=== PATIENT | male | born 1990 | race Caucasian/White ===

== ENCOUNTER 2016-12-15 12:04 | Emergency (ER) | payer OTHER ==
[2016-12-15 12:09] VITALS: BP 93/60
--- NOTE | 2016-12-15 12:29 | PHYS DOC ---
Past History Past Medical History: Alcoholism, Anxiety Past Surgical History: Other Alcohol Use: Heavy Drug Use: None Adult General Chief Complaint Chief Complaint: epigastric pain HPI HPI Patient is a 26-year-old male who presents ambulatory to the ED with a complaint of epigastric pain. He went to his primary care doctor's office, they said that he had a small amount of blood in his urine, and a sent him to the emergency department. Patient states that for about 4 days, when he wakes up in the morning, he feels bloated and has pain and pressure in his epigastrium. It's more pressure than pain. Prior to today, He will vomit and the pain improves. This morning, he woke up with the pain, it was worse than it had been. He vomited. The pain did not improve after vomiting. He had had a red bull energy drink which came back up. The patient denies having had pain like this before in his life. He denies any blood in his vomit or stools, denies black stools. Patient states the frequency of his bowel movements "are not what they should be". He has not had as much stool as he would expect for what he is been eating. Patient for about 2 months has been taking an "herbal supplement",Kratom. Patient has been using it daily. He smokes cigarettes daily. He drinks on occasion. He did have a few drinks last night. Patient denies chronic medical problems. He has not had abdominal surgery. He does not take any prescribed medications. 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 Review of Systems Review of Systems Constitutional: Denies fever or chills [] Respiratory: Denies cough or shortness of breath [] Cardiovascular: Denies chest pain GI: As in history of present illness : Reported microscopic hematuria from a urine test at the doctor's office this morning Musculoskeletal: Denies back pain or joint pain [] Allergies Allergies Allergies Coded Allergies Type Severity Reaction Last Updated Verified No Known Drug Allergies 03/02/16 No Physical Exam Physical Exam Constitutional: Well developed, well nourished, appears uncomfortable, appears anxious, somewhat agitated, holding his epigastrium, vital signs stable, alert and mentating normally HENT: Normocephalic, atraumatic, bilateral external ears normal, nose normal. [ ] Eyes: conjunctiva normal, no discharge. [] Neck: Normal range of motion, no stridor. [] Cardiovascular:Heart rate regular rhythm, no murmur [] Lungs & Thorax: Bilateral breath sounds clear to auscultation [] Abdomen: Bowel sounds normal, no masses, no pulsatile masses. Increased tympany throughout. Patient insists that I should not palpate his epigastrium, elsewhere there is mild to no abdominal tenderness, no rebound or guarding. Skin: Warm, dry, no erythema, no rash. [] Extremities: no cyanosis, no clubbing, no edema. [] Neurologic: Alert and oriented X 3, normal motor function, no focal deficits noted. [] Current Patient Data Vital Signs Vital Signs Date Time Temp Pulse Resp B/P (MAP) Pulse Ox O2 Delivery O2 Flow Rate FiO2 12/15/16 12:09 83 16 98 Room Air EKG EKG [] Radiology/Procedures Radiology/Procedures [] Course & Med Decision Making Course & Med Decision Making Pertinent Labs and Imaging studies reviewed. (See chart for details) 26-year-old male presents ambulatory to the ED with epigastric pain for the past 4 mornings, worse this morning, with vomiting without hematemesis. The patient is anxious and agitated. He does smell of alcohol but does not appear acutely intoxicated. Patient gestures to his epigastric area and states "I just want you to look in there, I just want you to see what's in there that's hurting ". After my history and exam, patient stated "what could it be? I want you to tell me everything that could possibly be." I discussed with the patient that based on my history and exam, I would consider gastritis or ulcer, pancreatitis, or "gas pain" at this time. I advised that we could check some labs, urine, and check an x-ray. Patient stated that he would prefer to just start with an x-ray , "the more you talk about it, the more I think it might be a gas pain". We agreed that we would start by obtaining x-rays, if that is consistent with my differential of possible constipation/"gas pain", we could treat him with a laxative. After x-rays, I told him, I might recommend further testing depending on the results. He was agreeable to that plan. I left the room to order the x-ray, and in probably less than 5 minutes, the patient was up walking down the self toward the exit, ED nursing staff ask him where he was going, he stated "this is an emergency and I need some attention faster than this". The patient had been in the ED a total of 25 minutes at that time. The patient ambulated out the exit and left without further evaluation, left without his discharge instructions, although I had verbally told him that if he was found to have constipation/gas on x-ray I would likely recommend a laxative in that case. [] Dragon Disclaimer Dragon Disclaimer This chart was dictated in whole or in part using Voice Recognition software in a busy, high-work load, and often noisy Emergency Department environment. It may contain unintended and wholly unrecognized errors or omissions. Departure Departure: Impression: Primary Impression: Epigastric abdominal pain Additional Impression: Vomiting Disposition: 01 HOME, SELF-CARE Condition: STABLE Referrals: PCP,UNKNOWN (PCP) Additional Instructions: Patient left prior to completing evaluation and left without discharge instructions. Problem Qualifiers DRISS GARRETT MD Dec 15, 2016 12:29
== END 2016-12-15 12:32 | disposition home or self-care (01) ==
LOC: ER 12:04
DX: R10.13 Epigastric pain (principal); R11.10 Vomiting, unspecified; R31.9 Hematuria, unspecified; F10.20 Alcohol dependence, uncomplicated; F41.9 Anxiety disorder, unspecified; F17.210 Nicotine dependence, cigarettes, uncomplicated
CPT/HCPCS: 99281

== ENCOUNTER → 2016-12-20 | Outpatient (CLI) | payer OTHER ==
[2016-12-15 12:09] VITALS: BP 93/60
[~2016-12-20] MED LIST: IOHEXOL 240 MG/ML 50ML VIAL. ONE; IOHEXOL 300 MG/ML 75 ML VIAL. IV ONE
--- NOTE | 2016-12-20 13:11 | RAD ---
Examination: CT of the abdomen pelvis with IV contrast History: History of epigastric pain, dark urine, elevated liver enzymes Comparison: None available Technique: Axial CT images of the abdomen pelvis were performed with IV contrast. Coronal and sagittal reformats were performed. Oral contrast was used. PQRS Compliance Statement: One or more of the following individualized dose reduction techniques were utilized for this examination: 1. Automated exposure control 2. Adjustment of the mA and/or kV according to patient size 3. Use of iterative reconstruction technique Findings: The visualized bibasal lungs grossly appears unremarkable. No evidence of free air identified in the abdomen. There is mild diffuse decreased attenuation noted throughout the liver likely hepatic steatosis. There is a focal low density measuring 4.0 x 1.6 cm identified in the left lobe of the liver with focal fat or hypodense lesion. The visualized spleen, adrenals grossly appears unremarkable. The gallbladder is mildly distended. The stomach is mildly distended. The visualized pancreas grossly appears unremarkable. The small bowel is nondilated. Feces and gas noted in the colon. The appendix is normal. Kidneys enhance symmetrically. The urinary bladder is mildly distended. No evidence of lytic bony destructive lesion. Impression: 1. No acute intra-abdominal findings. 2. 4 cm hypodensity identified in the left lobe of the liver probably focal fat or a hypodense lesion. Consider follow-up ultrasound for further evaluation. 3. Mild hepatic steatosis.
== END | disposition home or self-care (01) ==
LOC: CT 11:15
PROVIDERS: ATTEND Nurse Practitioner Family
DX: K76.0 Fatty (change of) liver, not elsewhere classified (principal); K82.8 Other specified diseases of gallbladder; N32.89 Other specified disorders of bladder; K31.89 Other diseases of stomach and duodenum; R19.7 Diarrhea, unspecified; R94.5 Abnormal results of liver function studies
CPT/HCPCS: 74177; Q9966; Q9967

== ENCOUNTER 2017-01-28 12:08 | Emergency (ER) | payer OTHER ==
[~2017-01-28] VITALS: Ht 175.3 cm; Wt 68.0 kg
[2017-01-28 12:14] VITALS: BP 145/50
--- NOTE | 2017-01-28 13:03 | PHYS DOC ---
Past History Past Medical History: Alcoholism, Anxiety Past Surgical History: Other Alcohol Use: Heavy Drug Use: None Adult General Chief Complaint Chief Complaint: BURN/SMOKE INHALATION HPI HPI 26-year-old patient states he had burn to his right second toe 3 days ago with hot wax and developed a blister that getting larger and more painful. Patient is up-to-date with his tetanus immunization. Patient denies fever and chills and other injuries. Review of Systems Review of Systems Constitutional: Denies fever or chills [] Eyes: Denies change in visual acuity, redness, or eye pain [] HENT: Denies nasal congestion or sore throat [] Respiratory: Denies cough or shortness of breath [] Cardiovascular: No additional information not addressed in HPI [] GI: Denies abdominal pain, nausea, vomiting, bloody stools or diarrhea [] : Denies dysuria or hematuria [] Musculoskeletal: Denies back pain or joint pain [] Integument: Denies rash or skin lesions, burn to toe [] Neurologic: Denies headache, focal weakness or sensory changes [] Endocrine: Denies polyuria or polydipsia [] All other systems were reviewed and found to be within normal limits, except as documented in this note. Allergies Allergies Allergies Coded Allergies Type Severity Reaction Last Updated Verified No Known Drug Allergies 03/02/16 No Physical Exam Physical Exam Constitutional: Well nourished, mild distress, non-toxic appearance, very anxious. [] HENT: Normocephalic, atraumatic, bilateral external ears normal, oropharynx moist, no oral exudates, nose normal. [] Eyes: PERRLA, EOMI, conjunctiva normal, no discharge. [] Neck: Normal range of motion, no tenderness, supple, no stridor. [] Cardiovascular:Heart rate regular rhythm, no murmur [] Lungs & Thorax: Bilateral breath sounds clear to auscultation [] Skin: Warm, dry, no erythema, no rash, 2nd degree burn to right 2nd toe with a large blister in dorsal side of toe. Extremities: No tenderness, no cyanosis, no clubbing, ROM intact, no edema. [] Neurologic: Alert and oriented X 3 Psychologic:very anxious Current Patient Data Vital Signs Vital Signs Date Time Temp Pulse Resp B/P (MAP) Pulse Ox O2 Delivery O2 Flow Rate FiO2 01/28/17 12:14 98.4 97 20 96.0 EKG EKG [] Radiology/Procedures Radiology/Procedures [] Course & Med Decision Making Course & Med Decision Making Evaluation of patient in ER showed 26-year-old male patient presented to ER with a large blister to right second toe that drained with opening the blister with sterile needle and dressing applied and instructed to follow up with a PCP. Dragmisty Disclaimer Dragon Disclaimer This electronic medical record was generated, in whole or in part, using a voice recognition dictation system. Departure Departure: Impression: Primary Impression: Second degree burn of second toe of right foot Additional Impression: Anxiety Disposition: HOME, SELF-CARE (At 1303) Condition: IMPROVED Referrals: PCP,ELEANOR (PCP) Patient Instructions: Burn Care Additional Instructions: Follow-up with a primary care physician in the list provided for you in ER Scripts Ibuprofen (IBUPROFEN) 800 Mg Tablet 1 TAB PO TID, #30 TAB Prov: FITO MONCADA MD 01/28/17 Problem Qualifiers FITO MONCADA MD Jan 28, 2017 13:03
[2017-01-28] MEDS ORDERED: IBUP800T19 PO (13:07)
[2017-01-28] MEDS ORDERED: IBUPROFEN 600 MG TABLET. PO ONE (13:15)
== END 2017-01-28 13:28 | disposition home or self-care (01) ==
LOC: ER 12:08
DX: T25.221A Burn of second degree of right foot, initial encounter (principal); F10.20 Alcohol dependence, uncomplicated; F41.9 Anxiety disorder, unspecified; X19.XXXA Contact with other heat and hot substances, initial encounter; Y93.89 Activity, other specified; Y99.8 Other external cause status; Y92.89 Other specified places as the place of occurrence of the external cause
CPT/HCPCS: 10160; 99284-25

== ENCOUNTER 2019-10-08 14:57 | Emergency (ER) | payer SELFPAY ==
[~2019-10-08] VITALS: Ht 172.7 cm; Wt 62.0 kg
[~2019-10-08 14:57] MED LIST changes: +IBUP800T19 PO; -IOHEXOL 240 MG/ML 50ML VIAL. ONE; -IOHEXOL 300 MG/ML 75 ML VIAL. IV ONE
--- NOTE | 2019-10-09 06:43 | PHYS DOC ---
Past History Past Medical History: Alcoholism, Anxiety Past Surgical History: Other Alcohol Use: Heavy Drug Use: None General Adult EDM: Chief Complaint: ALCOHOL INTOXICATION HPI: HPI: 28 yo M PMH alcoholism, presents to the ed brought in by his mother, intoxicated, requesting detox/rehab from alcohol. Last drink was [employer]. Pt denies any falls/head trauma. Takes no routine medications, on no AC. Denies any other substance abuse. Reports seizures if he does not drink alcohol daily. Review of Systems: Review of Systems: Constitutional: Denies fever or chills Eyes: Denies change in visual acuity HENT: Denies nasal congestion or sore throat Respiratory: Denies cough or shortness of breath Cardiovascular: Denies chest pain or edema GI: Denies abdominal pain, nausea, vomiting, bloody stools or diarrhea : Denies dysuria Musculoskeletal: Denies back pain or joint pain Integument: Denies rash Neurologic: Denies headache, focal weakness or sensory changes Endocrine: Denies polyuria or polydipsia Lymphatic: Denies swollen glands Psychiatric: Denies depression or anxiety Allergies: Allergies: Allergies Coded Allergies Type Severity Reaction Last Updated Verified No Known Drug Allergies 03/02/16 No Physical Exam: PE: Constitutional: Well developed, well nourished, no acute distress, non-toxic appearance. [] Alcohol on breath HENT: Normocephalic, atraumatic, bilateral external ears normal, oropharynx moist, no oral exudates, nose normal. [] No signs of head trauma Eyes: PERRLA, EOMI, conjunctiva normal, no discharge. [] Neck: Normal range of motion, no tenderness, supple, no stridor. [] Cardiovascular:Heart rate regular rhythm, no murmur [] Lungs & Thorax: Bilateral breath sounds clear to auscultation [] Abdomen: Bowel sounds normal, soft, no tenderness, no masses, no pulsatile masses. [] Skin: Warm, dry, no erythema, no rash. [] Back: No tenderness, no CVA tenderness. [] Extremities: No tenderness, no cyanosis, no clubbing, ROM intact, no edema. [] No tremors Neurologic: Alert and oriented X 3, normal motor function, normal sensory function, no focal deficits noted. [] Steady gait with no ataxia Psychologic: Affect normal, judgement normal, mood normal. [] EKG: EKG: [] Radiology/Procedures: Radiology/Procedures: [] Course & Med Decision Making: Course & Med Decision Making Pertinent Labs and Imaging studies reviewed. (See chart for details) Concern for alcohol intoxication, initially requesting detox or rehab placement. On reevaluation (1.5 hours after ed arrival), patient with steady gait and requested to be discharged. Is refusing all lab work and no longer wishes to be admitted for detox. I suspect pt was appeasing his mother on initial exam. Cannot convince pt to stay. Has no signs of trauma. Patient with alcohol on breath but does have medical decision-making capacity, steady gait, is alert and oriented. Was encouraged to have his mother drive him home. Pt would not wait for discharge papers and was seen leaving the ed prior to me clearing pt and providing paperwork/supportive outpt followup. Rina Disclaimer: Rina Disclaimer: This electronic medical record was generated, in whole or in part, using a voice recognition dictation system. Departure Departure: Impression: Primary Impression: ETOH abuse Disposition: 07 AGAINST MEDICAL ADVICE Condition: STABLE Justification of Admission: Justification of Admission: Justification of Admission Dx: N/A CHIDI BRAND DO Oct 09, 2019 06:43
== END 2019-10-08 16:05 | disposition left against medical advice (07) ==
LOC: ER 14:57
DX: F10.19 Alcohol abuse with unspecified alcohol-induced disorder (principal); Y90.9 Presence of alcohol in blood, level not specified; F41.9 Anxiety disorder, unspecified
CPT/HCPCS: 99281

== ENCOUNTER 2019-10-08 18:21 | Emergency (ER) | payer SELFPAY ==
[~2019-10-08] VITALS: Ht 172.7 cm; Wt 62.0 kg
--- NOTE | 2019-10-08 18:31 | PHYS DOC ---
Past History Past Medical History: Alcoholism, Anxiety Past Surgical History: Other Alcohol Use: Heavy Drug Use: None Adult General HPI HPI Patient is a 28-year-old male who presents for acute alcohol intoxication. He was seen previously at our facility earlier today but left AGAINST MEDICAL ADVICE after refusing any and all forms of diagnostic work-up and intervention. Patient reportedly drank heavily since being discharged, presents now with laceration on right frontal area of his scalp and tearful. Patient does not want to disclose what happened prior to arrival or how he obtained the injury. Patient denied any loss of consciousness. History limited given acute intoxication Review of Systems Review of Systems Fourteen body systems of review of systems have been reviewed. See HPI for pertinent positives and negative responses, other mohamud all other systems are negative, non-pertinent or non-contributory Allergies Allergies Allergies Coded Allergies Type Severity Reaction Last Updated Verified No Known Drug Allergies 03/02/16 No Physical Exam Physical Exam Constitutional: Well developed, well nourished, no acute distress, non-toxic appearance, acutely intoxicated. HENT: Normocephalic, laceration to right anterior forehead, hemostasis achieved spontaneously prior to arrival, bilateral external ears normal, oropharynx moist, no oral exudates, nose normal. Eyes: PERRLA, EOMI, conjunctiva normal, no discharge. Neck: Normal range of motion, no tenderness, supple, no stridor. Cardiovascular: Heart rate regular, sinus rhythm, no murmurs rubs or gallops Lungs & Thorax: Bilateral breath sounds clear to auscultation Abdomen: Bowel sounds normal, soft, no tenderness, no masses, no pulsatile masses. Nonsurgical abdomen, no peritoneal signs Skin: Warm, dry, no erythema, no rash. Laceration to right forehead it is noted above, noncompliant with healthcare providers attempting to provide care and further evaluate wound for need for stitches etc. Back: No tenderness, no CVA tenderness. Extremities: No tenderness, no cyanosis, no clubbing, ROM intact, no edema. Neurologic: Alert and oriented X 3, normal motor & sensory function, no focal deficits noted. Cranial nerves II through XII intact. Psychologic: Tearful affect, acutely intoxicated, anxious mood Current Patient Data Vital Signs Vital Signs Date Time Temp Pulse Resp B/P (MAP) Pulse Ox O2 Delivery O2 Flow Rate FiO2 10/08/19 20:15 92 16 139/81 (100) 96 Room Air 8/13/20 18:25 98.0 96 18 145/103 (117) 96 Room Air EKG EKG [] Radiology/Procedures Radiology/Procedures PROCEDURE: CT HEAD AND CERVICAL SPINE WO EXAM: CT HEAD WITHOUT IV CONTRAST CLINICAL HISTORY: Reason: head injury, neck pain, etoh / Spl. Instructions: / History: COMPARISON: None. TECHNIQUE: Routine CT of the head without contrast. Soft tissues and bone windows were reviewed. PQRS compliance statement - One or more of the following individualized dose reduction techniques were utilized for this study: 1. Automated exposure control 2. Adjustment of the mA and/or kV according to patient size 3. Use of iterative reconstruction technique FINDINGS: There is no evidence of hemorrhage, mass or extra-axial fluid collection. Fernandez-white differentiation is maintained with no evidence of edema. There is no mass effect or shift of the intracranial structures. The ventricles, basilar cisterns and cortical sulci are normal in size and configuration for the patients stated age. The cerebellum and brainstem are unremarkable. The calvarium demonstrates no evidence of fracture or focal lesion. There is normal aeration of the visualized paranasal sinuses and mastoid air cells. The visualized portions of the orbits are normal. Focal subcutaneous soft tissue swelling overlying the right frontal region. IMPRESSION: No evidence for acute intracranial process. Soft tissue swelling overlying the right frontal region. EXAM: CT CERVICAL SPINE WITHOUT IV CONTRAST CLINICAL HISTORY: head injury, neck pain, etoh COMPARISON: None available. TECHNIQUE: Helical CT of the cervical spine was performed. Axial, coronal and sagittal reformatted images were also performed. PQRS compliance statement - One or more of the following individualized dose reduction techniques were utilized for this study: 1. Automated exposure control 2. Adjustment of the mA and/or kV according to patient size 3. Use of iterative reconstruction technique FINDINGS: Vertebral body heights are preserved. Disc heights are preserved. No spondylolisthesis. No acute fracture. Mandibular dental interval is preserved. No significant prevertebral soft tissue swelling. IMPRESSION: No acute fracture or subluxation of the cervical spine. Electronically signed by: Stepan Castellanos MD (10/08/2019 7:08 PM) [facility] Course & Med Decision Making Course & Med Decision Making Ambulatory patient seen on immediate ER arrival by myself Airway intact, breathing unlabored, vital signs obtained and grossly unremarkable, patient refused attempts to gain IV access History obtained but limited given patient's acutely intoxicated state on arrival, physical exam performed but again, patient unwilling to allow thorough evaluation of right forehead laceration CT imaging of head and neck performed and non-concerning for acute abnormalities Patient continued to refuse care for scalp laceration and refused IV access and subsequent laboratory testing Patient observed in our ER for greater than 2 hours without any noticeable changes in mentation. Marked improvement in patient's sobriety Nonetheless, patient voiced desire to leave. Patient had capacity to make this decision at that time. I recommended against this decision and so, patient signed out AGAINST MEDICAL ADVICE for second time today Patient understands consequences of leaving prior to complete work-up and consequences of delaying laceration repair of scalp if needed as he would not let us even evaluate it today Ultimately, patient was discharged home in stable condition, his mother came and picked him up Strict return precautions were discussed at length, all questions and concerns addressed. I provided patient with local resources to get help for alcohol abuse which is obviously impairing his activities of daily living and ability to live a healthy and successful life Dragon Disclaimer Dragon Disclaimer This electronic medical record was generated, in whole or in part, using a voice recognition dictation system. Departure Departure: Impression: Primary Impression: Alcohol abuse Additional Impression: Laceration of scalp Disposition: 07 AGAINST MEDICAL ADVICE Condition: STABLE Referrals: PCP,NO (PCP) Patient Instructions: Alcohol Intoxication, Alcohol Problems, Laceration Care, Adult Additional Instructions: As discussed prior to your ER departure, please call your primary care physician in upcoming 24 hours to schedule care You have been given numerous resources on alcohol abuse. You have been seen twice at our ER today. I highly advised to seek extensive outpatient help from your primary care physician and others for your ongoing alcohol abuse Justification of Admission: Justification of Admission: Justification of Admission Dx: N/A Problem Qualifiers DEEPAK SAUCEDO DO Oct 08, 2019 18:31
[2019-10-08] MEDS ORDERED: MVI, ADULT NO.4 WITH VIT K 10 ML, FOLIC ACID INJ 1 MG, THIAMINE INJ 100 MG in IV NORMAL... IV SCH ×4 (19:00)
--- NOTE | 2019-10-08 19:10 | RAD ---
EXAM: CT HEAD WITHOUT IV CONTRAST CLINICAL HISTORY: Reason: head injury, neck pain, etoh / Spl. Instructions: / History: COMPARISON: None. TECHNIQUE: Routine CT of the head without contrast. Soft tissues and bone windows were reviewed. PQRS compliance statement - One or more of the following individualized dose reduction techniques were utilized for this study: 1. Automated exposure control 2. Adjustment of the mA and/or kV according to patient size 3. Use of iterative reconstruction technique FINDINGS: There is no evidence of hemorrhage, mass or extra-axial fluid collection. Fernandez-white differentiation is maintained with no evidence of edema. There is no mass effect or shift of the intracranial structures. The ventricles, basilar cisterns and cortical sulci are normal in size and configuration for the patients stated age. The cerebellum and brainstem are unremarkable. The calvarium demonstrates no evidence of fracture or focal lesion. There is normal aeration of the visualized paranasal sinuses and mastoid air cells. The visualized portions of the orbits are normal. Focal subcutaneous soft tissue swelling overlying the right frontal region. IMPRESSION: No evidence for acute intracranial process. Soft tissue swelling overlying the right frontal region. EXAM: CT CERVICAL SPINE WITHOUT IV CONTRAST CLINICAL HISTORY: head injury, neck pain, etoh COMPARISON: None available. TECHNIQUE: Helical CT of the cervical spine was performed. Axial, coronal and sagittal reformatted images were also performed. PQRS compliance statement - One or more of the following individualized dose reduction techniques were utilized for this study: 1. Automated exposure control 2. Adjustment of the mA and/or kV according to patient size 3. Use of iterative reconstruction technique FINDINGS: Vertebral body heights are preserved. Disc heights are preserved. No spondylolisthesis. No acute fracture. Mandibular dental interval is preserved. No significant prevertebral soft tissue swelling. IMPRESSION: No acute fracture or subluxation of the cervical spine. Electronically signed by: Stepan Castellanos MD (10/08/2019 7:08 PM) JONI
[2019-10-08 20:15] VITALS: BP 139/81
== END 2019-10-08 20:31 | disposition left against medical advice (07) ==
LOC: ER 18:21
DX: S01.01XA Laceration without foreign body of scalp, initial encounter (principal); F10.20 Alcohol dependence, uncomplicated; F41.9 Anxiety disorder, unspecified; Y90.9 Presence of alcohol in blood, level not specified; X58.XXXA Exposure to other specified factors, initial encounter; Y93.89 Activity, other specified; Y92.89 Other specified places as the place of occurrence of the external cause; Y99.8 Other external cause status
CPT/HCPCS: 70450; 72125; 99285-25

== ENCOUNTER 2021-04-04 15:47 | Emergency (ER) | payer SELFPAY ==
[~2021-04-04] VITALS: Ht 175.3 cm; Wt 73.6 kg
[2021-04-04 16:52] VITALS: BP 126/74
--- NOTE | 2021-04-04 17:21 | PHYS DOC ---
Past History Past Medical History: Alcoholism, Anxiety (CHAU HERNANDEZ) Past Surgical History: Tonsillectomy Additional Past Surgical Histo: adenoids (CHAU HERNANDEZ) Alcohol Use: Heavy Drug Use: None (CHAU HERNANDEZ) General Adult EDM: Chief Complaint: WRIST PAIN HPI: HPI: Patient is a 30 year old male who presents with right forearm/wrist pain and swelling. Patient states that on Saturday (3 days ago), a box fell onto his forearm/wrist. 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 He was seen in his primary care physician's office today, who directed him to the ER with concerns regarding difficult to palpate pulses and skin pallor. Patient denies paresthesias and intravenous drug use. He has no other complaints at this time. (CHAU HERNANDEZ) Review of Systems: Review of Systems: Constitutional: Denies fever, chills or generalized weakness Eyes: Denies change in visual acuity, visual field deficits or discharge HENT: Denies ear pain, nasal congestion or sore throat Respiratory: Denies cough or shortness of breath Cardiovascular: Denies chest pain, palpitations or edema GI: Denies abdominal pain, nausea, vomiting, bloody stools or diarrhea : Denies dysuria or hematuria Musculoskeletal: See HPI Integument: Denies rash or other skin lesion Neurologic: Denies headache, focal weakness or sensory changes (CHAU HERNANDEZ) Allergies: Allergies: Allergies Coded Allergies Type Severity Reaction Last Updated Verified No Known Drug Allergies 03/02/16 No (CHAU HERNANDEZ) Physical Exam: PE: Constitutional: Well developed, well nourished, non-toxic appearance. HENT: Normocephalic, atraumatic, bilateral external ears normal, nose normal. Eyes: EOMI, conjunctiva normal, no discharge. Neck: Normal range of motion, no stridor. Skin: Warm, dry, no erythema, no rash. Extremities: Bilateral radial pulses 2+ and symmetrical, right lateral distal forearm erythematous and swollen with exquisite tenderness, right wrist range of motion limited secondary to pain. Extremities otherwise no tenderness, no cyanosis, no clubbing, ROM intact, no edema. Neurologic: Alert and oriented x4, no focal deficits noted. (CHAU HERNANDEZ) Current Patient Data: Vital Signs: Vital Signs Date Time Temp Pulse Resp B/P (MAP) Pulse Ox O2 Delivery O2 Flow Rate FiO2 04/04/21 16:52 97.9 70 16 126/74 (91) 98 Room Air (CHAU HERNANDEZ) Radiology/Procedures: Radiology/Procedures: PROCEDURE: FOREARM RIGHT EXAM: Right wrist, 3 views; right forearm, 2 views. HISTORY: Blunt trauma. COMPARISON: None. FINDINGS: 3 views of the right wrist and 2 views of the right forearm are obtained. There is no fracture, dislocation or subluxation. There is no foreign body. IMPRESSION: No acute osseous finding. Electronically signed by: Kimberly Connor MD (04/04/2021 5:21 PM) [id number] (CHAU HERNANDEZ) Heart Score: C/O Chest Pain: No (CHAU HERNANDEZ) Course & Med Decision Making: Course & Med Decision Making Pertinent Labs and Imaging studies reviewed. (See chart for details) Patient is a 30-year-old male who was sent to the emergency department by his primary care physician with what seemed to be concern for compartment syndrome. Patient's pulses are palpable, he does not have any pallor noted to the affected limb, and his sensation is intact in all digits. Plain films were ordered to evaluate for fracture or dislocation. Plain films do not show any acute injury. The affected skin is likely cellulitic. Patient denies any breaks in the skin aside from cat scratches to his knuckles that were sustained over a week ago. Return precautions were provided. All the patient's questions were answered. He understands and is agreeable to discharge plan. (CHAU HERNANDEZ) Dragon Disclaimer: Dragon Disclaimer: This electronic medical record was generated, in whole or in part, using a voice recognition dictation system. (CHAU HERNANDEZ) Departure Departure: Impression: Primary Impression: Cellulitis of right forearm Additional Impression: Contusion of right forearm, initial encounter Disposition: HOME / SELF CARE / HOMELESS Condition: STABLE Referrals: CHIDI MO MD (PCP) Patient Instructions: Cellulitis, [id number] Additional Instructions: Cellulitis: All You Need to Know Cellulitis is a common bacterial skin infection that causes redness, swelling, and pain in the infected area of the skin. If untreated, it can spread and cause serious health problems. Good wound care and hygiene are important for preventing cellulitis. Many Bacteria Can Cause Cellulitis Different types of bacteria can cause cellulitis, which is an infection of the deeper layers of the skin. This page focuses on one of the most common causes of cellulitis: group A Streptococcus or group A strep. How People Get Cellulitis Experts do not know how the bacteria get into the body for many people who get cellulitis. Sometimes the bacteria get into the body through openings in the skin, like an injury or surgical wound. In general, people cannot catch cellulitis from someone else. Signs and Symptoms In general, cellulitis appears as a red, swollen, and painful area of skin that is warm and tender to the touch. The skin may look pitted, like the peel of an orange, or blisters may appear on the affected skin. Some people may also develop fever and chills. Cellulitis can appear anywhere on the body, but it is most common on the feet and legs. See a doctor if you have symptoms of cellulitis. Seek medical attention immediately if the red area of the skin spreads quickly or you develop a fever or chills. Breaks in the Skin Allow Bacteria to Enter Anyone can get cellulitis, but some factors can increase the risk of getting this infection. The following are risk factors because they allow bacteria to get through the skin: - Injuries that cause a break in the skin (like cuts, ulcers, bites, puncture wounds, tattoos, piercings) - Chronic skin conditions (like athletes foot and eczema) - Chickenpox and shingles - Injection drug use Other factors that increase someones risk for cellulitis include: - Being overweight - Having limbs (feet, legs, hands, and arms) stay swollen (chronic edema), including swelling due to problems with the lymphatic system so it does not drain the way it should (lymphedema); the lymphatic system is a part of the bodys immune system that helps move fluid that contains infection-fighting cells throughout the body - Having a healthy vein removed from the leg and connected to the coronary artery in order to improve blood flow to the heart (coronary artery bypass grafting) Doctors Diagnose Cellulitis by How It Looks Doctors typically diagnose cellulitis by doing a physical examination and looking at the affected skin. Blood or other lab tests are usually not needed. Antibiotics Are Needed Cellulitis is treated with antibiotics. Most cellulitis infections can be treated with antibiotics that are taken by mouth (oral antibiotics). More serious infections may need to be treated in the hospital with intravenous (IV) antibiotics, which are given directly into a vein. If the infection is in the arm or leg, then keeping that limb elevated can help decrease swelling and speed up recovery. Complications Are Uncommon, but Can Be Serious Complications from cellulitis are uncommon but can include serious infections in the following locations: - Blood (bacteremia) - Joints (suppurative arthritis) - Bone (osteomyelitis) - Lining of the chambers of the heart and heart valves (endocarditis) Cellulitis can cause vein swelling if blood clots form close to the skin (thrombophlebitis). Although rare, cellulitis may lead to a very serious infection called necrotizing fasciitis that needs immediate medical care. Protect Yourself and Others People can get cellulitis more than once. Having cellulitis does not protect s omeone from getting it again in the future. While there is no vaccine to prevent cellulitis or group A strep infections in general, there are things you can do to protect yourself and others. Good Wound Care Common sense and good wound care are the best ways to prevent bacterial skin infections, including cellulitis. Clean all minor cuts and injuries that break the skin (like blisters and scrapes) with soap and water. Clean and cover draining or open wounds with clean, dry bandages until they heal. See a doctor for puncture and other deep or serious wounds. If you have an open wound or active infection, avoid spending time in: - Hot tubs - Swimming pools - Natural bodies of water (e.g., lakes, diego, oceans) Wash hands often with soap and water or use an alcohol-based hand rub if washing is not possible. People who have had multiple cellulitis infections below the knee should be checked for fungal infections (athletes foot). These infections should be treated since they can cause breaks in the skin that can lead to cellulitis. EMERGENCY DEPARTMENT GENERAL DISCHARGE INSTRUCTIONS Thank you for coming to [facility] (ED) today and trusting us with you care. We trust that you had a positive experience in our Emergency Department. If you wish to speak to the department management, you may call the director at [phone]. YOUR FOLLOW UP INSTRUCTIONS ARE FOLLOWS: 1. Follow up with your primary care doctor. If you do not have a primary doctor, please ask for a resource list of physicians or clinics that may be able to assist you with follow up care. 2. The emergency provider has interpreted your imaging studies, if any were ordered. The radiology repair specialist also reviewed them. If there is a change in the findings, you will be notified in 48 hours when at all possible. 3. If a lab test or culture has been done, your results will be reviewed and y ou will be notified if you need a change in treatment. 4. Follow instructions verbalized to you and refer to the printouts if needed. ADDITIONAL INSTRUCTIONS AND INFORMATION: 1. Your care today has been supervised by a physician who is specially trained in emergency care. Many problems require more than one evaluation for a complete diagnosis and treatment. We recommend that you schedule your follow up appointment as recommended to ensure complete treatment of you illness or injury. If you are unable to obtain follow up care and continue to have a problem, or if your condition worsens, we recommend that you return to the ED. 2. We are not able to safely determine your condition over the phone nor are we able to give sound medical advice over the phone. For these safety reasons, if you call for medical advice we will ask you to come to the ED for further evaluation. 3. If you have any questions regarding these discharge instructions please call the ED at [phone]. SAFETY INFORMATION: In the interest of safety, wellness, and injury prevention; we encourage you to wear your seat belt, if you smoke; quite smoking, and we encourage family to use a protective helmet for bicycling and other sporting events that present an increased risk for head injury. IF YOUR SYMPTOMS WORSEN OR NEW SYMPTOMS DEVELOP, OR YOU HAVE CONCERNS ABOUT YOUR CONDITION; OR IF YOUR CONDITION WORSENS WHILE YOU ARE WAITING FOR YOUR FOLLOW UP APPOINTMENT; EITHER CONTACT YOUR PRIMARY CARE DOCTOR, THE PHYSICIAN WHOSE NAME AND NUMBER YOU WERE GIVEN, OR RETURN TO THE ED IMMEDIATELY. Scripts Sulfamethoxazole/Trimethoprim (BACTRIM DS TABLET) 1 Each Tablet 1 TAB PO BID for cellulitis for 10 Days, #20 TAB 0 Refills Prov: CHAU HERNANDEZ 04/04/21 CHAU HERNANDEZ Apr 04, 2021 17:21 YO PFEIFFER MD Apr 05, 2021 19:43
[2021-04-04] MEDS: KETOROLAC 60 MG/2 ML VIAL. IM ONE (17:30)
[2021-04-04] MEDS ORDERED: SULF1TAB24 PO (18:01)
== END 2021-04-04 18:39 | disposition home or self-care (01) ==
LOC: ER 15:47
DX: S50.11XA Contusion of right forearm, initial encounter (principal); L03.113 Cellulitis of right upper limb; F10.20 Alcohol dependence, uncomplicated; Y90.9 Presence of alcohol in blood, level not specified; W20.8XXA Other cause of strike by thrown, projected or falling object, initial encounter; Y93.89 Activity, other specified; Y92.89 Other specified places as the place of occurrence of the external cause; Y99.8 Other external cause status
CPT/HCPCS: 73090; 73110; 96372; 99284; J1885